=== PATIENT | male | born 1945 | race Asian ===

== ENCOUNTER 2022-01-26 13:43 | Emergency (ER) | payer MEDICARE ==
[~2022-01-26] VITALS: Ht 172.7 cm; Wt 80.0 kg
[2022-01-26] MEDS ORDERED: CLOP75TA60 PO (14:16)
[2022-01-26] MEDS ORDERED: ISOS30TA92 PO (14:16)
[2022-01-26] MEDS ORDERED: ATOR40TA28 PO (14:16)
[2022-01-26] MEDS ORDERED: XALA2.5OS OU (14:16)
[2022-01-26] MEDS ORDERED: LOSA-381 PO (14:16)
[2022-01-26] MEDS ORDERED: METO25XL PO (14:16)
[2022-01-26] MEDS ORDERED: AMLO2.5T96 PO (14:16)
[2022-01-26] MEDS ORDERED: EZET10TA57 PO (14:16)
[2022-01-26] MEDS ORDERED: GLIM2 PO (14:16)
[2022-01-26] MEDS ORDERED: ACAR50TA5 PO (14:16)
[2022-01-26 14:46] LABS: BASOPHILS % (AUTO) 0.4 % (0.0-2.0); EOSINOPHILS % (AUTO) 0.1 % (1.0-6.0); HEMATOCRIT 44.8 % (41-53); HEMOGLOBIN 15.5 g/dL (13.5-17.5); LYMPHOCYTES # (AUTO) 1.3 K/uL (1.0-4.8); LYMPHOCYTES % (AUTO) 12.2 % (22.0-44.0); MEAN CORPUSCULAR HEMOGLOBIN 34.8 pg (26.0-34.0); MEAN CORPUSCULAR HGB CONC 34.6 G/dL (31.0-37.0); MEAN CORPUSCULAR VOLUME 101 fL (80-100); MONOCYTES # (AUTO) 0.6 K/uL (0.1-1.0); MONOCYTES % (AUTO) 5.6 % (2.0-9.0); NEUTROPHILS # (AUTO) 8.8 K/uL (1.8-7.7); NEUTROPHILS % (AUTO) 81.7 % (40.0-70.0); PLATELET COUNT (AUTO) 171 K/uL (150-450); RED BLOOD CELL COUNT(AUTO) 4.44 MIL/uL (4.50-5.90); RED CELL DISTRIBUTION WIDTH 13.1 % (11.5-14.5)
[2022-01-26 14:52] LABS: CALCIUM, TOTAL 8.8 mg/dL (8.8-10.5); CREATININE 1.28 mg/dL (0.60-1.30); POTASSIUM 4.3 mmol/L (3.5-5.1)
[2022-01-26 19:19] VITALS: BP 146/75
== END 2022-01-26 19:26 | disposition home or self-care (01) ==
LOC: EMS 13:55
DX: S00.212A Abrasion of left eyelid and periocular area, initial encounter (principal); R55 Syncope and collapse; R42 Dizziness and giddiness; E11.9 Type 2 diabetes mellitus without complications; E78.00 Pure hypercholesterolemia, unspecified; I10 Essential (primary) hypertension; Z95.0 Presence of cardiac pacemaker; X58.XXXA Exposure to other specified factors, initial encounter; Y93.01 Activity, walking, marching and hiking; Y92.89 Other specified places as the place of occurrence of the external cause; Y99.8 Other external cause status
CPT/HCPCS: 70450; 71045; 80048; 85025; 93005; 99285; 36415-L1; 36415-TC